=== PATIENT | female | born 1990 | race Caucasian/White ===

== ENCOUNTER 2017-11-17 17:36 | Emergency (ER) | payer OTHER ==
[2017-11-17] MEDS: DIPHTH/TET/ACEL PERTUSS (ADULT) 0.5 ML VIAL IM* (18:44)
[2017-11-17] MEDS: IBUPROFEN 600 MG TAB PO (19:13)
== END 2017-11-17 20:07 | disposition home or self-care (01) ==
LOC: FTE 17:36
DX: S01.01XA Laceration without foreign body of scalp, initial encounter (principal); F17.210 Nicotine dependence, cigarettes, uncomplicated; Y09 Assault by unspecified means; Z23 Encounter for immunization
CPT/HCPCS: 12002; 90471; 90715; 99283-25

== ENCOUNTER 2018-08-13 23:32 | Emergency (ER) | payer MEDICAID, OTHER | END 2018-08-14 02:30 | disposition home or self-care (01) | LOC: FTE 23:32 | DX: H72.92 Unspecified perforation of tympanic membrane, left ear (principal); F17.210 Nicotine dependence, cigarettes, uncomplicated | CPT/HCPCS: 99283 ==